=== PATIENT | male | born 1970 | race Caucasian/White ===

== ENCOUNTER → 2017-03-30 | Outpatient (CLI) | payer OTHER ==
--- NOTE | 2017-03-30 08:05 | MR ---
EXAMINATION TYPE: MR shoulder LT wo con DATE OF EXAM: 03/30/2017 COMPARISON: NONE HISTORY: Left shoulder pain per order. Shoulder pain with left arm weakness and difficulty raising ov erhead since injury February 17, 2017 per patient TECHNIQUE: Multiplanar, multisequence imaging of the left shoulder is performed without contrast. FINDINGS: Rotator Cuff: There is marked increased signal into the distal supraspinatus tendon. There is full-th ickness partial tear of the posterior fibers measured 1.7 cm in AP diameter on parasagittal image 9 w ith 1.1 cm transverse tear seen on paracoronal image 12. A few of the fibers anteriorly are felt to r emain intact seen best on parasagittal images. Infraspinatus tendon shows marked increased signal miky r humeral head attachment without discrete tear. Rotator cuff muscle bulk is preserved. Increased sig nal in subscapularis tendon with surrounding fluid is present. Acromioclavicular Joint: There is joint space loss with prominent spurring and capsular hypertrophy s uperiorly causing bulging of the superior scan. There is prominent spur from the inferior margin of t he distal clavicle paracoronal image 11. The acromion morphology is maintained. Glenohumeral Joint: High riding humeral head is present. Joint space loss with cartilaginous loss arvind tral glenoid is present. Labrum: Superior labrum is blunted with increased signal consistent with tear. Biceps Tendon: The long head of biceps is dislocated anteriorly and medially from bicipital groove se en best on axial images. Intra-articular portion is not well identified. Tear is difficult to exclude . Bone marrow signal: No focal abnormal marrow signal is appreciated. Other: No additional significant abnormality is appreciated. IMPRESSION: 1. Tendinosis with significant full-thickness partial tear of the supraspinatus tendon. 2. Moderate to severe distal tendinosis of distal infraspinatus tendon. 3. Dislocated long head of biceps tendon. Tear not excluded. 4. Complex superior labral tear. 5. Moderate to severe acromioclavicular joint arthropathy. 6. High riding humeral head.
== END | disposition home or self-care (01) ==
LOC: RADMRIMAIN 06:33
PROVIDERS: ATTEND Family Medicine
DX: S43.085A Other dislocation of left shoulder joint, initial encounter (principal); S43.432A Superior glenoid labrum lesion of left shoulder, initial encounter; S46.012A Strain of muscle(s) and tendon(s) of the rotator cuff of left shoulder, initial encounter; M12.812 Other specific arthropathies, not elsewhere classified, left shoulder

== ENCOUNTER → 2018-06-28 | Outpatient (CLI) | payer OTHER ==
--- NOTE | 2018-06-29 07:26 | MR ---
EXAMINATION TYPE: MR shoulder LT wo con DATE OF EXAM: 06/28/2018 COMPARISON: Prior MRI left shoulder March 30, 2017. HISTORY: Pain and diminished motion with history of surgery 2017. TECHNIQUE: Multiplanar, multisequence imaging of the left shoulder is performed without contrast. FINDINGS: Rotator Cuff: There is interval rotator cuff surgery with new artifact at level of humeral head noted . Surgically repaired supraspinatus tendon is intact. There is suspected new near full-thickness retr acted tear of the infraspinatus tendon with perhaps a few anterior fibers remaining intact. There is new fairly moderate muscular atrophy of the infraspinatus muscle bulk. Subscapularis tendon is intact. Acromioclavicular Joint: There is persistent advanced degenerative change with marked joint space los s and spurring. Spur from inferior aspect distal clavicle effaces underlying fat plane similar to ge or. No significant change from prior. Glenohumeral Joint: There is now high riding humeral head. Moderate joint space loss is redemonstrate d. Moderate joint effusion is now seen slightly larger from prior. Labrum: The superior labrum shows some areas of increased signal consistent with tear similar to prio r. Biceps Tendon: The long head of biceps remains dislocated anteromedial in location within bicipital g roove. Intracapsular portion is not as well seen. Bone marrow signal: Heterogeneity consistent with red marrow reconversion is identified. Other: No additional significant abnormality is appreciated. IMPRESSION: 1. Interval successful repair of the anterior supraspinatus tendon. 2. New significant near full-thickness tear of the infraspinatus tendon with moderate muscular atroph y suggesting more likely chronic in age rather than related to acute injury. 3. Stable advanced degenerative change at acromioclavicular joint with probable underlying impingemen t. 4. Stable dislocation long head of biceps tendon. 5. Stable superior labral tear. 6. Increasing high riding humeral head raises concern for worsening instability.
== END | disposition home or self-care (01) ==
LOC: RADMRIMAIN 17:07
PROVIDERS: ATTEND Family Medicine
DX: S43.315A Dislocation of left scapula, initial encounter (principal); S43.432A Superior glenoid labrum lesion of left shoulder, initial encounter; M75.122 Complete rotator cuff tear or rupture of left shoulder, not specified as traumatic; M19.012 Primary osteoarthritis, left shoulder; M62.512 Muscle wasting and atrophy, not elsewhere classified, left shoulder; M25.812 Other specified joint disorders, left shoulder

== ENCOUNTER 2021-03-02 22:04 | Emergency (ER) | payer MEDICARE, OTHER ==
[2021-03-02 22:41] VITALS: RESP 16; TEMP 98.2
--- NOTE | 2021-03-02 23:43 | XR ---
EXAMINATION TYPE: XR KUB DATE OF EXAM: 03/02/2021 COMPARISON: NONE HISTORY: Abdominal pain TECHNIQUE: 2 views upright FINDINGS: There is no sign of intestinal obstruction or pneumoperitoneum. Fecal pattern is normal. Lynne ng bases are clear. There is mild lumbar dextroscoliosis. There are no pathologic calcifications over the kidneys. There is spondylotic changes in the lumbar spine. IMPRESSION: Nonacute abdomen.
[2021-03-03 00:06] LABS: Basophils # (A) 0.1 k/uL (0-0.2); Basophils % (A) 1 %; Eosinophils # (A) 0.4 k/uL (0-0.7); Eosinophils % (A) 3 %; HCT 46.1 % (39.0-53.0); HGB 15.8 gm/dL (13.0-17.5); Lymphocytes # (A) 3.2 k/uL (1.0-4.8); Lymphocytes % (A) 22 %; MCH 31.2 pg (25.0-35.0); MCHC 34.3 g/dL (31.0-37.0); MCV 90.8 fL (80.0-100.0); Mean Platelet Volume 7.7; Monocytes # (A) 1.3 k/uL (0-1.0); Monocytes % (A) 9 %; Neutrophils # (A) 9.4 k/uL (1.3-7.7); Neutrophils % (A) 64 %; Platelet Count 242 k/uL (150-450); RBC 5.08 m/uL (4.30-5.90); RDW 13.8 % (11.5-15.5); WBC 14.6 k/uL (3.8-10.6)
[2021-03-03 00:21] LABS: ALT 16 U/L (4-49); AST 21 U/L (17-59); African American GFR (CKD) >90 (>60 ml/min/1.73 sqM); Albumin 4.3 g/dL (3.5-5.0); Alkaline Phosphatase 83 U/L (38-126); Amylase 64 U/L (30-110); Anion Gap 9 mmol/L; Blood Urea Nitrogen 14 mg/dL (9-20); Calcium 9.7 mg/dL (8.4-10.2); Carbon Dioxide 25 mmol/L (22-30); Chloride 108 mmol/L (98-107); Glucose 109 mg/dL (74-99); Lipase 67 U/L (23-300); Non-African American GFR(CKD) 85 (>60 ml/min/1.73 sqM); Potassium 3.9 mmol/L (3.5-5.1); Sodium 142 mmol/L (137-145); Total Bilirubin 0.4 mg/dL (0.2-1.3); Total Protein 7.4 g/dL (6.3-8.2)
[2021-03-03 00:29] LABS: Appearance,Urine Clear (Clear); Bilirubin,Urine Negative (Negative); Blood,Urine Trace (Negative); Color,Urine Yellow; Glucose,Urine (UA) Negative (Negative); Ketones,Urine Negative (Negative); Leukocyte Esterase,Urine Negative (Negative); Mucus,Urine Rare /hpf; Nitrite,Urine Negative (Negative); PH, Urine 5.5 (5.0-8.0); Protein,Urine Negative (Negative); RBC,Urine 8 /hpf (0-5); Specific Gravity,Urine 1.017 (1.001-1.035); Urobilinogen,Urine <2.0 mg/dL (<2.0); WBC,Urine 4 /hpf (0-5)
--- NOTE | 2021-03-03 01:05 | ED ---
Abdominal Pain HPI - General Chief Complaint: Abdominal Pain Stated Complaint: Abd pain Time Seen by Provider: 03/02/21 23:15 Source: patient, family Mode of arrival: wheelchair Limitations: no limitations - History of Present Illness Initial Comments: 's patient is a 50-year-old man who presents to be evaluated for abdominal pain. The pain had started on Tuesday around noon though it seems to have worsened somewhat since that time. I he indicates that initially it was somewhat on the right side and now his right lower. He describes it as a crampy and achy pain. No associated symptoms. MD Complaint: abdominal pain Onset/Timin -: hour(s) Location: RLQ Radiation: none Migration to: RLQ Severity: moderate Quality: cramping, aching Consistency: intermittent Improves With: nothing Associated Symptoms: denies other symptoms - Related Data Allergies Allergy/AdvReac Type Severity Reaction Status Date / Time No Known Allergies Allergy Verified 03/02/21 22:37 Review of Systems ROS Statement: Those systems with pertinent positive or pertinent negative responses have been documented in the HPI. ROS Other: All systems not noted in ROS Statement are negative. Constitutional: Denies: fever, chills Respiratory: Denies: cough, dyspnea Cardiovascular: Denies: chest pain, palpitations, edema Gastrointestinal: Reports: abdominal pain. Denies: nausea, vomiting, diarrhea, constipation, melena, hematochezia Genitourinary: Denies: dysuria, hematuria, testicular pain, testicular mass Musculoskeletal: Denies: back pain Skin: Denies: rash Neurological: Denies: headache Past Medical History Past Medical History: No Reported History History of Any Multi-Drug Resistant Organisms: None Reported Past Surgical History: Orthopedic Surgery Additional Past Surgical History / Comment(s): shoulder surgery Past Psychological History: No Psychological Hx Reported Smoking Status: Current every day smoker Past Alcohol Use History: None Reported Past Drug Use History: None Reported General Exam Limitations: no limitations General appearance: alert, in no apparent distress Head exam: Present: atraumatic, normocephalic Eye exam: Present: normal appearance. Absent: scleral icterus, conjunctival injection Neck exam: Present: normal inspection Respiratory exam: Present: normal lung sounds bilaterally. Absent: respiratory distress, wheezes, rales, rhonchi, stridor Cardiovascular Exam: Present: regular rate, normal rhythm, normal heart sounds. Absent: systolic murmur, diastolic murmur, rubs, gallop GI/Abdominal exam: Present: soft, tenderness, normal bowel sounds. Absent: distended, guarding, rebound, rigid, mass, pulsatile mass, hernia Extremities exam: Present: normal inspection, normal capillary refill. Absent: pedal edema, calf tenderness Back exam: Present: normal inspection. Absent: CVA tenderness (R), CVA tenderness (L) Neurological exam: Present: alert Skin exam: Present: warm, dry, intact, normal color. Absent: rash Course Vital Signs 03/02/21 22:38 Temperature 98.2 F Pulse Rate 95 Respiratory 16 Rate Blood Pressure 133/87 O2 Sat by Pulse 98 Oximetry Medical Decision Making - Lab Data Result diagrams: 03/02/21 23:17 03/02/21 23:17 Lab Results 03/02/21 03/02/21 03/02/21 Range/Units 23:17 23:17 23:17 WBC 14.6 H (3.8-10.6) k/uL RBC 5.08 (4.30-5.90) m/uL Hgb 15.8 (13.0-17.5) gm/dL Hct 46.1 (39.0-53.0) % MCV 90.8 (80.0-100.0) fL MCH 31.2 (25.0-35.0) pg MCHC 34.3 (31.0-37.0) g/dL RDW 13.8 (11.5-15.5) % Plt Count 242 (150-450) k/uL MPV 7.7 Neutrophils % 64 % Lymphocytes % 22 % Monocytes % 9 % Eosinophils % 3 % Basophils % 1 % Neutrophils # 9.4 H (1.3-7.7) k/uL Lymphocytes # 3.2 (1.0-4.8) k/uL Monocytes # 1.3 H (0-1.0) k/uL Eosinophils # 0.4 (0-0.7) k/uL Basophils # 0.1 (0-0.2) k/uL Sodium 142 (137-145) mmol/L Potassium 3.9 (3.5-5.1) mmol/L Chloride 108 H (98-107) mmol/L Carbon Dioxide 25 (22-30) mmol/L Anion Gap 9 mmol/L BUN 14 (9-20) mg/dL Creatinine 1.03 (0.66-1.25) mg/dL Est GFR (CKD-EPI)AfAm >90 (>60 ml/min/1.73 sqM) Est GFR (CKD-EPI)NonAf 85 (>60 ml/min/1.73 sqM) Glucose 109 H (74-99) mg/dL Calcium 9.7 (8.4-10.2) mg/dL Total Bilirubin 0.4 (0.2-1.3) mg/dL AST 21 (17-59) U/L ALT 16 (4-49) U/L Alkaline Phosphatase 83 (38-126) U/L C-Reactive Protein (<1.0) mg/dL Total Protein 7.4 (6.3-8.2) g/dL Albumin 4.3 (3.5-5.0) g/dL Amylase 64 (30-110) U/L Lipase 67 (23-300) U/L Urine Color Yellow Urine Appearance Clear (Clear) Urine pH 5.5 (5.0-8.0) Ur Specific [place] 1.017 (1.001-1.035) Urine Protein Negative (Negative) Urine Glucose (UA) Negative (Negative) Urine Ketones Negative (Negative) Urine Blood Trace H (Negative) Urine Nitrite Negative (Negative) Urine Bilirubin Negative (Negative) Urine Urobilinogen <2.0 (<2.0) mg/dL Ur Leukocyte Esterase Negative (Negative) Urine RBC 8 H (0-5) /hpf Urine WBC 4 (0-5) /hpf Urine Mucus Rare H (None) /hpf 03/02/21 Range/Units 23:17 WBC (3.8-10.6) k/uL RBC (4.30-5.90) m/uL Hgb (13.0-17.5) gm/dL Hct (39.0-53.0) % MCV (80.0-100.0) fL MCH (25.0-35.0) pg MCHC (31.0-37.0) g/dL RDW (11.5-15.5) % Plt Count (150-450) k/uL MPV Neutrophils % % Lymphocytes % % Monocytes % % Eosinophils % % Basophils % % Neutrophils # (1.3-7.7) k/uL Lymphocytes # (1.0-4.8) k/uL Monocytes # (0-1.0) k/uL Eosinophils # (0-0.7) k/uL Basophils # (0-0.2) k/uL Sodium (137-145) mmol/L Potassium (3.5-5.1) mmol/L Chloride (98-107) mmol/L Carbon Dioxide (22-30) mmol/L Anion Gap mmol/L BUN (9-20) mg/dL Creatinine (0.66-1.25) mg/dL Est GFR (CKD-EPI)AfAm (>60 ml/min/1.73 sqM) Est GFR (CKD-EPI)NonAf (>60 ml/min/1.73 sqM) Glucose (74-99) mg/dL Calcium (8.4-10.2) mg/dL Total Bilirubin (0.2-1.3) mg/dL AST (17-59) U/L ALT (4-49) U/L Alkaline Phosphatase (38-126) U/L C-Reactive Protein 0.9 (<1.0) mg/dL Total Protein (6.3-8.2) g/dL Albumin (3.5-5.0) g/dL Amylase (30-110) U/L Lipase (23-300) U/L Urine Color Urine Appearance (Clear) Urine pH (5.0-8.0) Ur Specific [place] (1.001-1.035) Urine Protein (Negative) Urine Glucose (UA) (Negative) Urine Ketones (Negative) Urine Blood (Negative) Urine Nitrite (Negative) Urine Bilirubin (Negative) Urine Urobilinogen (<2.0) mg/dL Ur Leukocyte Esterase (Negative) Urine RBC (0-5) /hpf Urine WBC (0-5) /hpf Urine Mucus (None) /hpf Disposition Clinical Impression: Abdominal pain Disposition: HOME SELF-CARE Condition: Good Instructions (If sedation given, give patient instructions): Abdominal Pain (ED) Is patient prescribed a controlled substance at d/c from ED?: No Referrals: Joe Pisano DO [Primary Care Provider] - 1-2 days
--- NOTE | 2021-03-03 01:27 | CT ---
EXAMINATION TYPE: CT abdomen pelvis wo con DATE OF EXAM: 03/03/2021 COMPARISON: None HISTORY: ABD PAIN CT DLP: 808.30 mGycm Automated exposure control for dose reduction was used. Lung bases are clear of infiltrate. There is bullous pulmonary emphysema. Heart size is normal. There is no pericardial effusion. Liver spleen stomach pancreas gallbladder appear intact. The bile ducts are not dilated. There is no adrenal mass. Kidneys show normal size. There is mild right-sided hydronephrosis. There i s 6 mm obstructing calculus at the right ureteropelvic junction. There is 3 mm calculus upper pole ri ght kidney. There is 3 mm calculus upper pole left kidney. There is no retroperitoneal adenopathy. Ap pendix is posterior and appears normal. The bladder distends smoothly. There is no inguinal hernia. There is no free fluid in the pelvis. The re is no evidence of pelvic mass. There is no mesenteric edema. There is no ascites or free air. There is no bowel obstruction. There a re some mildly distended loops of jejunum in the left upper quadrant up to 3.3 cm. There is some jeju nal wall thickening. Exam limited by lack of intestinal contrast. The lumbar vertebra have normal alignment. There is multilevel vacuum disc and spur formation. The po sterior elements are intact. There is no compression fracture. The bony pelvis is intact. The hip antoine nts are intact. IMPRESSION: Bullous pulmonary emphysema. Obstructing calculus at the right ureteropelvic junction with right-sided hydronephrosis. Bilateral renal calculi. Normal appendix. Distended loops of jejunum with suggestion of some wall thickening. Gastroenteritis is possible.
[2021-03-03 02:35] VITALS: BP 133/82; PULSE 67
== END 2021-03-03 02:34 | disposition home or self-care (01) ==
LOC: EC 22:04
DX: N13.2 Hydronephrosis with renal and ureteral calculous obstruction (principal); F17.200 Nicotine dependence, unspecified, uncomplicated; J43.9 Emphysema, unspecified
CPT/HCPCS: 36415; 74018; 74176; 80053; 81001; 82150; 83690; 85025; 86140; 99284

== ENCOUNTER 2021-03-03 13:25 | Emergency (ER) | payer MEDICARE, OTHER ==
[2021-03-03 13:36] VITALS: BP 132/87; PULSE 94; RESP 18; TEMP 98.1
[2021-03-03] MEDS ORDERED: ONDANSETRON 4 MG/2 ML VIAL IVP STA (14:18)
[2021-03-03] MEDS ORDERED: SODIUM CHLORIDE 0.9% 1,000 ML IV STA (14:18)
[2021-03-03] MEDS ORDERED: KETOROLAC 15 MG/ML 1 ML VIAL IVP STA (14:18)
--- NOTE | 2021-03-03 14:18 | ED ---
Abdominal Pain HPI - General Chief Complaint: Abdominal Pain Stated Complaint: revisit - abd pain Time Seen by Provider: 03/03/21 14:06 Source: patient, family, RN notes reviewed, old records reviewed Mode of arrival: ambulatory Limitations: no limitations - History of Present Illness Initial Comments: 50-year-old white male patient presents to the emergency room, alert and oriented 4, well-appearing, complaining of right flank and right lower quadrant abdominal pain. Patient describes pain as cramping but was sharp patient states that he was seen here yesterday and had CAT scan done and an x-ray and was told to return if worse. Patient states that he had increasing sharp pain with chills today called his primary care doctor Dr Allen and was told to return to the emergency room. Patient states that the pain is more of a cramp at this point and it is the right lower quadrant. He has been able to urinate at home without any difficulties and there is no fever here in the emergency room. Patient states at its worst the pain was 8 out of 10 patient denies any medical history. MD Complaint: abdominal pain, flank pain Location: RLQ, R flank Radiation: LLQ Severity scale (1-10): 2 Quality: cramping, sharp Consistency: intermittent Improves With: nothing Worsens With: nothing Associated Symptoms: nausea, chills - Related Data Previous Rx's Medication Instructions Recorded HYDROcodone/APAP 5-325MG [[place] 1 tab PO Q6HR PRN #12 tab 03/03/21 5-325] Ibuprofen [Motrin] 800 mg PO Q6HR #30 tab 03/03/21 Tamsulosin [Flomax] 0.4 mg PO DAILY #7 cap 03/03/21 Allergies Allergy/AdvReac Type Severity Reaction Status Date / Time No Known Allergies Allergy Verified 03/03/21 13:36 Review of Systems ROS Statement: Those systems with pertinent positive or pertinent negative responses have been documented in the HPI. ROS Other: All systems not noted in ROS Statement are negative. Past Medical History Past Medical History: No Reported History History of Any Multi-Drug Resistant Organisms: None Reported Past Surgical History: Orthopedic Surgery Additional Past Surgical History / Comment(s): shoulder surgery Past Psychological History: No Psychological Hx Reported Smoking Status: Current every day smoker Past Alcohol Use History: None Reported Past Drug Use History: None Reported General Exam Limitations: no limitations General appearance: alert, in no apparent distress Head exam: Present: atraumatic, normocephalic, normal inspection Eye exam: Present: normal appearance, PERRL, EOMI. Absent: scleral icterus, conjunctival injection, periorbital swelling Pupils: Present: normal accommodation ENT exam: Present: normal exam, normal oropharynx, mucous membranes moist Neck exam: Present: normal inspection, full ROM. Absent: tenderness, meningism us, lymphadenopathy, thyromegaly Respiratory exam: Present: normal lung sounds bilaterally. Absent: respiratory distress, wheezes, rales, rhonchi, stridor, chest wall tenderness, accessory muscle use, decreased breath sounds Cardiovascular Exam: Present: regular rate, normal rhythm, normal heart sounds. Absent: systolic murmur, diastolic murmur, rubs, gallop, clicks GI/Abdominal exam: Present: soft, normal bowel sounds. Absent: distended, tenderness, guarding, rebound, rigid Extremities exam: Present: normal inspection, full ROM, normal capillary refill. Absent: tenderness, pedal edema, joint swelling, calf tenderness Back exam: Present: normal inspection, full ROM, CVA tenderness (R). Absent: tenderness, CVA tenderness (L), muscle spasm, paraspinal tenderness, vertebral tenderness, rash noted Neurological exam: Present: alert, oriented X3, CN II-XII intact Psychiatric exam: Present: normal affect, normal mood. Absent: depressed, agitated, anxious, flat affect, manic Skin exam: Present: warm, dry, intact, normal color. Absent: rash, cyanosis, diaphoretic, erythema, petechiae, pallor, mottled, abrasion Course Vital Signs 03/03/21 13:33 Temperature 98.1 F Pulse Rate 94 Respiratory 18 Rate Blood Pressure 132/87 O2 Sat by Pulse 98 Oximetry Medical Decision Making - Medical Decision Making Patient was seen yesterday, CAT scan shows a 6 mm right UPJ obstructing calculus with a 3 mm calculus in the upper pole of right kidney. UA showed blood. Patient states that the pain was in the right flank and has not traveled to the right lower groin which cause increasing pain last night. Patient states pain is down to a 1 or 2 this time. Which is likely attended the patient passed the stone. patient will be treated with Flomax, Motrin and [place] with follow-up with urology. Case discussed with Dr. Henao. Disposition Clinical Impression: Kidney stone on right side Disposition: HOME SELF-CARE Condition: Fair Instructions (If sedation given, give patient instructions): Kidney Stones (ED), How to Strain Your Urine (ED) Additional Instructions: Take the Flomax, and Motrin and use [place] as needed for worsening pain. Follow- up with urology within the next 7 days. Strain your urine with strainer provided. Return to the emergency room if fever, inability to urinate or worsening pain. Prescriptions: Tamsulosin [Flomax] 0.4 mg PO DAILY #7 cap Ibuprofen [Motrin] 800 mg PO Q6HR #30 tab HYDROcodone/APAP 5-325MG [[place] 5-325] 1 tab PO Q6HR PRN #12 tab PRN Reason: Pain Is patient prescribed a controlled substance at d/c from ED?: Yes Referrals: Joe Pisano DO [Primary Care Provider] - 1-2 days Rylan rCuz MD [STAFF PHYSICIAN] - 1-2 days Time of Disposition: 14:49
[2021-03-03] MEDS ORDERED: IBUPROFEN 800 MG TAB PO STA (14:51)
[2021-03-03] MEDS ORDERED: TAMSULOSIN 0.4 MG CAP.ER.24H PO STA (14:52)
[2021-03-03] MEDS ORDERED: ONDANSETRON ODT 4 MG TAB PO STA (14:52)
== END 2021-03-03 15:23 | disposition home or self-care (01) ==
LOC: EC 13:25
DX: N20.2 Calculus of kidney with calculus of ureter (principal); F17.200 Nicotine dependence, unspecified, uncomplicated
CPT/HCPCS: 99283